=== PATIENT | male | born 1975 ===

== ENCOUNTER 2021-08-16 14:57 | Outpatient (REF) | payer MEDICAID, SELFPAY ==
[2021-08-16 15:32] LABS: MANUAL DIFF FLAG NO
[2021-08-16 15:36] LABS: Basophils Absolute Auto 0.1 X10*3/uL (0.0-0.2); Basophils Percent Auto 0.7 % (0-2); Eosinophils Absolute Auto 0.3 X10*3/uL (0.0-0.4); Eosinophils Percent Auto 2.8 % (0-4); Hematocrit 45.1 % (42.0-52.0); Hemoglobin 15.6 g/dl (14.0-18.0); Lymphocytes Absolute Auto 2.9 X10*3/uL (1.2-4.9); Lymphocytes Percent Auto 30.2 % (20-40); Mean Corpuscular HGB Conc 34.6 g/dl (31.0-36.0); Mean Corpuscular Volume 89.7 fL (80.0-98.0); Mean Platelet Volume 9.8 fL (9.4-12.4); Monocytes Absolute Auto 0.6 X10*3/uL (0.1-1.2); Monocytes Percent Auto 6.5 % (2-11); Neutrophils Absolute Auto 5.7 x10*3/uL (2.0-8.3); Neutrophils Percent Auto 58.8 % (45-73); Platelet Count 259 X10*3/uL (160-400); Red Blood Count 5.03 X10*6/uL (4.60-5.80); Red Cell Distribution Width 12.6 % (11.0-16.0); White Blood Count 9.7 X10*3/uL (4.8-10.8)
[2021-08-16 16:01] LABS: Alanine Aminotransferase 47 U/L (0-40); Albumin Level 4.4 g/dL (3.5-5.0); Alkaline Phosphatase 74 U/L (39-117); Anion Gap 11 (12-20); Aspartate Amino Transferase 28 U/L (5-37); Bilirubin Total 0.4 mg/dL (0.0-1.0); Blood Urea Nitrogen 10 mg/dL (9-16); Calcium 9.5 mg/dL (8.4-10.2); Carbon Dioxide 27 mmol/L (22-29); Chloride 102 mmol/L (96-108); Cholesterol 168 mg/dL; Estimated Glomerular Filt Rate > 60; Glucose Random 124 mg/dL (60-115); HDL Cholesterol 28 mg/dL; LDL Cholesterol Calculated 88 mg/dl; Potassium 4.4 mmol/L (3.3-5.1); Sodium 136 mmol/L (135-145); Triglycerides 263 mg/dL
[2021-08-16 17:24] LABS: CT PCR NOT DETECTED (Not Detect.); NG PCR NOT DETECTED (Not Detect.)
[2021-08-17 06:54] LABS: HIV Num 2 0.13 S/CO; HIV Num 3 0.11 S/CO
[2021-08-17 06:58] LABS: HIV AB/AG Nonreactive (Nonreactive)
== END 2021-08-16 14:58 | disposition home or self-care (01) ==
LOC: HO.LAB 14:57
PROVIDERS: PCP Internal Medicine; Visit Provider Internal Medicine
DX: Z00.00 Encounter for general adult medical examination without abnormal findings (principal); Z11.4 Encounter for screening for human immunodeficiency virus [HIV]; Z11.3 Encounter for screening for infections with a predominantly sexual mode of transmission; M25.512 Pain in left shoulder; E78.2 Mixed hyperlipidemia; F17.201 Nicotine dependence, unspecified, in remission
CPT/HCPCS: 80053; 80061; 85025; 87389; 87491; 87591

== ENCOUNTER 2021-10-24 15:52 | Outpatient (REF) | payer MEDICAID, SELFPAY ==
[2021-10-24 17:34] LABS: Iron 106 mcg/dL (45-160); Percent Iron Saturation 28 % (15-50); Total Iron Binding Capacity 381 mcg/dL (228-428); Unsaturated Iron Binding 275 ug/dL
[2021-10-24 17:54] LABS: Ferritin 311 ng/mL (20-250)
[2021-10-25 04:21] LABS: HBS Num1 10.32 mIU/mL (0-7.99); HBc Num1 0.08 S/CO (0.00-0.79); HBsAGNum1 0.28 S/CO (0.00-0.99); Hepatitis A Antibody IgM 0.19 Index (0-0.79); Hepatitis B Core Antibody Nonreactive (Nonreactive); Hepatitis B Surface Antigen Negative (Negative); ~HepC Num1 0.09 S/CO (0.00-0.79); ~Hepatitis A Antibody IgM Nonreactive (Nonreactive); ~Hepatitis C Antibody Nonreactive (Nonreactive)
[2021-10-25 05:15] LABS: HBS Num2 10.04 mIU/mL (0-7.99); HBS Num3 9.94 mIU/mL (0-7.99); ~Hepatitis B Surface Antibody GRAYZONE (Nonreactive)
[2021-10-26 14:17] LABS: Ceruloplasmin 31 mg/dL (18-36); Transferrin 286 mg/dL (188-341)
[2021-10-26 19:47] LABS: Anti Nuclear Antibody Screen NEGATIVE (NEGATIVE)
== END 2021-10-24 15:53 | disposition home or self-care (01) ==
LOC: HO.LAB 15:52
PROVIDERS: PCP Internal Medicine; Visit Provider Internal Medicine
DX: E78.2 Mixed hyperlipidemia (principal); K21.9 Gastro-esophageal reflux disease without esophagitis; R11.0 Nausea; R74.01 Elevation of levels of liver transaminase levels; F17.201 Nicotine dependence, unspecified, in remission
CPT/HCPCS: 36415; 82390; 82728; 83540; 84466; 86038; 86039; 86704; 86706; 86709; 86803; 87340

== ENCOUNTER 2022-02-28 14:39 | Outpatient (REF) | payer MEDICAID, SELFPAY ==
--- NOTE | ~2022-02-28 | US_ITS ---
EXAMINATION: US ABDOMEN COMPLETE CLINICAL INFORMATION: Elevated LFTs. COMPARISON: None TECHNIQUE: Real-time imaging of the abdominal viscera. FINDINGS: PANCREAS: Normal. ABDOMINAL AORTA: The proximal, mid, and distal segments are normal in caliber. INFERIOR VENA CAVA: Visualized portions are normal. LIVER: Diffusely increased hepatic echogenicity and sound attenuation consistent with diffuse hepatic steatosis. No focal liver lesion seen. No intrahepatic biliary ductal dilatation. Smooth hepatic contour. GALLBLADDER: Surgically absent. COMMON BILE DUCT: Normal in caliber measuring 0.3 cm in diameter. RIGHT KIDNEY: Normal. No hydronephrosis. No renal calculi or focal parenchymal lesions. The kidney measures 11.1 cm in maximum dimension. LEFT KIDNEY: Normal. No hydronephrosis. No renal calculi or focal parenchymal lesions. The kidney measures 10.9 cm in maximum dimension. SPLEEN: Normal. The spleen measures 11.3 cm in maximum dimension. FREE FLUID: None. US/US abdomen complete IMPRESSION: Sonographic appearance consistent with diffuse hepatic steatosis.
== END 2022-02-28 14:40 | disposition home or self-care (01) ==
LOC: HO.HMGCX 14:39
PROVIDERS: Visit Provider Internal Medicine
DX: R94.5 Abnormal results of liver function studies (principal)
CPT/HCPCS: 76700

== ENCOUNTER 2023-03-26 12:07 | Outpatient (REF) | payer MEDICAID, SELFPAY ==
[2023-03-26 12:46] LABS: MANUAL DIFF FLAG NO
[2023-03-26 12:50] LABS: Basophils Absolute Auto 0.1 X10*3/uL (0.0-0.2); Basophils Percent Auto 0.6 % (0-2); Eosinophils Absolute Auto 0.3 X10*3/uL (0.0-0.4); Eosinophils Percent Auto 3.6 % (0-4); Hematocrit 46.2 % (42.0-52.0); Imm Gran Abs Auto 0.04 X10*3/uL (0.00-0.03); Imm Gran Pct Auto 0.4 % (0.0-0.4); Lymphocytes Absolute Auto 2.8 X10*3/uL (1.2-4.9); Lymphocytes Percent Auto 29.4 % (20-40); Mean Corpuscular HGB Conc 34.6 g/dl (31.0-36.0); Mean Corpuscular Hemoglobin 30.8 pg (27.0-33.0); Mean Platelet Volume 10.2 fL (9.4-12.4); Monocytes Absolute Auto 0.6 X10*3/uL (0.1-1.2); Monocytes Percent Auto 6.6 % (2-11); Neutrophils Absolute Auto 5.6 x10*3/uL (2.0-8.3); Neutrophils Percent Auto 59.4 % (45-73); Platelet Count 271 X10*3/uL (160-400); Red Blood Count 5.19 X10*6/uL (4.60-5.80); Red Cell Distribution Width 11.9 % (11.0-16.0); White Blood Count 9.5 X10*3/uL (4.8-10.8)
[2023-03-26 12:56] LABS: Prothrombin Time 12.1 SEC (11.1-13.3)
[2023-03-26 12:58] LABS: Estimated Average Glucose 105 mg/dL; Hemoglobin A1c % 5.3 % (<6.0)
[2023-03-26 13:23] LABS: Alanine Aminotransferase 51 U/L (0-40); Albumin Level 4.2 g/dL (3.5-5.0); Alkaline Phosphatase 74 U/L (39-117); Aspartate Amino Transferase 34 U/L (5-37); Bilirubin Direct 0.2 mg/dL (0.0-0.5); Bilirubin Total 0.4 mg/dL (0.0-1.0); Iron 90 mcg/dL (45-160); Percent Iron Saturation 27 % (15-50); Total Iron Binding Capacity 335 mcg/dL (228-428); Total Protein 8.1 g/dL (6.5-8.0); Unsaturated Iron Binding 245 ug/dL
[2023-03-26 13:39] LABS: Ferritin 257 ng/mL (20-250)
[2023-03-27 17:39] LABS: Alpha 1 Anti-trypsin 149 mg/dL (83-199)
[2023-03-31 11:59] LABS: Smooth Muscle Antibody 32 U (<20)
[2023-04-02 14:18] LABS: FIB-ALT 25 U/L (9-46); FIB-Alpha-2-Macroglobulin 230 mg/dL (106-279); FIB-Apolipoprotein A1 121 mg/dL (94-176); FIB-GGT 38 U/L (3-95); FIB-Haptoglobin 230 mg/dL (43-212); FIB-Total Bilirubin 0.4 mg/dL (0.2-1.2); Liver Fibrosis Score 0.24; Liver Fibrosis Stage F0-F1; Nec Inflam Act Grade A0
[2023-04-02 16:23] LABS: Mitochondrial Antibodies NEGATIVE (NEGATIVE)
== END 2023-03-26 12:08 | disposition home or self-care (01) ==
LOC: HO.LAB 12:07
PROVIDERS: PCP Internal Medicine; Visit Provider Internal Medicine
DX: R74.8 Abnormal levels of other serum enzymes (principal); K76.0 Fatty (change of) liver, not elsewhere classified
CPT/HCPCS: 36415; 80076; 81596; 82103; 82728; 83036; 83540; 85025; 85610; 86015; 86381

== ENCOUNTER 2023-04-03 10:23 | Day surgery (SDC) | payer MEDICAID, SELFPAY ==
[2023-04-01 11:58] VITALS: BMI 36.8
--- NOTE | 2023-04-02 10:05 | HO.ANESPROP2 ---
Documented by User: Yamel Alvarez NP 04/02/23 10:06 HPI - Anesthesia Eval Consult details Narrative: 47yo M for Colonoscopy [facility] Past Medical History Medical History HTN (hypertension) Fatty liver Anxiety OCD (obsessive compulsive disorder) Surgical History Surgical History Hx of wisdom tooth extraction Hx of cholecystectomy (~2008) Social History Social History Patient Tobacco Use Status: Former Tobacco user Quit Date: >4 yrs ago Use of substances other than those prescribed or required for medical reasons: No Are you DNR?: No Advance Directives: No Advance Directives Information Provided: Yes Meds Allergies Allergy/AdvReac Type Severity Reaction Status Date / Time No Known Allergies Allergy Verified 04/03/23 10:33 Home Medications Medication Instructions Recorded Confirmed Last Taken Type aripiprazole 10 mg tablet (Abilify) 10 mg PO DAILY 04/01/23 04/03/23 Unknown History lorazepam 1 mg tablet (Ativan) 1 mg PO BEDTIME PRN Anxiety 04/01/23 04/03/23 Unknown History losartan 50 mg tablet 50 mg PO DAILY 04/01/23 04/03/23 Unknown History sertraline 100 mg tablet (Zoloft) 100 mg PO DAILY 04/01/23 04/03/23 Unknown History Exam Height,Weight and Vital Signs: Height 5 ft 8 in Weight 109.769 kg Assessment and Plan Assessment Anesthesia Assessment: Chart Reviewed Documented by User: Danelle Barker MD 04/03/23 12:28 [facility] Active Problems Active Problems: Snores but never tested for JESSICA Increased BMI HTN Past Medical History Medical History HTN (hypertension) Fatty liver Anxiety OCD (obsessive compulsive disorder) Family History Family history of problems with anesthesia: No Surgical History Surgical History Hx of wisdom tooth extraction Hx of cholecystectomy (~2008) History of Problems with Anesthesia: No Social History Social History Patient Tobacco Use Status: Former Tobacco user Quit Date: >4 yrs ago Use of substances other than those prescribed or required for medical reasons: No Are you DNR?: No Advance Directives: No Advance Directives Information Provided: Yes Meds Allergies Allergy/AdvReac Type Severity Reaction Status Date / Time No Known Allergies Allergy Verified 04/03/23 10:33 Home Medications Medication Instructions Recorded Confirmed Last Taken Type aripiprazole 10 mg tablet (Abilify) 10 mg PO DAILY 04/01/23 04/03/23 Unknown History lorazepam 1 mg tablet (Ativan) 1 mg PO BEDTIME PRN Anxiety 04/01/23 04/03/23 Unknown History losartan 50 mg tablet 50 mg PO DAILY 04/01/23 04/03/23 Unknown History sertraline 100 mg tablet (Zoloft) 100 mg PO DAILY 04/01/23 04/03/23 Unknown History Exam Height,Weight and Vital Signs: Height 5 ft 8 in Weight 109.769 kg Vital Signs Temp Pulse Resp BP Pulse Ox O2 Del Method 04/03/23 11:06 97.6 F 78 15 124/76 97 Room Air Airway Mallampati Class: III TM Dist: >3cm Neck ROM: Full Loose/Missing/Broken Teeth: Yes (Some missing. Denies broken or loose teeth) Heart: RRR Lungs: CTAB Assessment and Plan Assessment Anesthesia Assessment: Anesthesia Plan Discussed Final Anesthetic Review Family History of Problems with Anesthesia: No History of Problems with Anesthesia: No NPO: Yes ASA Class: III Final Preanesthetic Review: No Changes in Pt Med Stat, Meds/Allgs Chart Reviewed, Consent Obtained/Reviewed and Anes Risks/Benef Reviewed Patient Risk: Intermediate Procedure Risk: Low Assessment/Block/Sedation in SS: Assess/Block/Sedation-SS Anesthetic Plan Anesthetic Plan: TIVA Disposition: Standard PACU
--- OUTSIDE RECORDS SUMMARY | 2023-04-03 10:26 | XMS_ITS | Patient Health Record ---
Author Name Unknown Organization [facility] Address [address] [place] [address] Care Team Providers Care Director Case Management Name Role Phone Maribell Gonzalez Primary Care Provider UnavailYahir Lopez Unavailable [phone] ALLERGIES No Known Allergies RESULTS Component Value Reference Range Notes Alpha 1 Anti-trypsin (Not ye t reviewed by provider) Interpretation: Performing Lab:[facility], [address] [place] [phone] Notes/Report: Alpha 1 Anti-trypsin 149 83-199 mg/dL THIS TEST WAS PERFORMED AT: [facility] [address] [place] [phone] JOE KING MD Mitochondrial Antibody (Not yet reviewed by provider) Interpretation: Performing Lab:[facility], [address] [place] [phone] Notes/Report: Mitochondrial Antibodies NEGATIVE NEGATIVE THIS TEST WAS PERFORMED AT: [facility] [address] [place] [phone] JOE KING MD Mitochondrial Ab Titer TNP Smooth Muscle Antibody (Not yet reviewed by provider) Interpretation: Performing Lab:[facility], [address] [place] [phone] Notes/Report: Smooth Muscle Antibody 32 <20 U Reference Range: <20 U: Negative >or=20 U: Positive Antibodies recognizing actin are the main component of smooth muscle antibodies associated with auto- immune liver disease. Actin antibodies are found in approximately 75% of patients with autoimmune hepatitis (AIH) type 1, approximately 65% of patients with autoimmune cholangitis, approximately 30% of patients with primary biliary cirrhosis and approximately 2% of healthy controls. High values are closely correlated with AIH type 1. THIS TEST WAS PERFORMED AT: [facility] [address] [place] [address] TELMA RICCI MD,PHD Complete Blood Count Auto Di ff Reviewed date:03/27/2023 06:10:16 PM Interpretation: Performing Lab:[facility], [address] [place] [phone] Notes/Report: White Blood Count 9.5 4.8-10.8 X10*3/uL Red Blood Count 5.19 4.60-5.80 X10*6/uL Hemoglobin 16.0 14.0-18.0 g/dl Hematocrit 46.2 42.0-52.0 % Mean Corpuscular Volume 89.0 80.0-98.0 fL Mean Corpuscular Hemoglobin 30.8 27.0-33.0 pg Mean Corpuscular HGB Conc 34.6 31.0-36.0 g/dl Red Cell Distribution Width 11.9 11.0-16.0 % Platelet Count 271 160-400 X10*3/uL Mean Platelet Volume 10.2 9.4-12.4 fL Neutrophils Percent Auto 59.4 45-73 % Imm Gran Pct Auto 0.4 0.0-0.4 % Lymphocytes Percent Auto 29.4 20-40 % Monocytes Percent Auto 6.6 2-11 % Eosinophils Percent Auto 3.6 0-4 % Basophils Percent Auto 0.6 0-2 % NRBC Pct Auto 0.0 0.0-0.2 /100WBC Neutrophils Absolute Auto 5.6 2.0-8.3 x10*3/u L Imm Gran Abs Auto 0.04 0.00-0.03 X10*3/uL Lymphocytes Absolute Auto 2.8 1.2-4.9 X10*3/u L Monocytes Absolute Auto 0.6 0.1-1.2 X10*3/uL Eosinophils Absolute Auto 0.3 0.0-0.4 X10*3/u L Basophils Absolute Auto 0.1 0.0-0.2 X10*3/uL NRBC Abs Auto 0.000 0.0-0.012 X10*3/uL Prothrombin Time INR Reviewed date:03/27/2023 06:09:56 PM Interpretation: Performing Lab:[facility], [address] [place] [phone] Notes/Report: Prothrombin Time 12.1 11.1-13.3 SEC INTERNATIONAL NORM RATIO 1.0 0.9-1.1 INTERNATIONAL NORMALIZED RATIO (INR) REFERENCE RANGES Reference Range For patients not on anticoagulant therapy: 0.9 - 1.1 INR ranges for oral anticoagulant therapy: For prevention and treatment of venous thrombosis and pulmonary embolism: 2.0 - 3.0 For acute myocardial infarction with aspirin therapy: 2.0 - 3.0 For acute myocardial infarction without aspirin therapy: 3.0 - 4.0 For patients with mechanical prosthetic heart valves: 2.5 - 3.5 Liver Panel Reviewed date:03/31/2023 01:45:38 PM Interpretation: Performing Lab:[facility], [address] [place] [phone] Notes/Report: Bilirubin Total 0.4 0.0-1.0 mg/dL Bilirubin Direct 0.2 0.0-0.5 mg/dL Aspartate Amino Transferase 34 5-37 U/L Alanine Aminotransferase 51 0-40 U/L Total Protein 8.1 6.5-8.0 g/dL Albumin Level 4.2 3.5-5.0 g/dL Alkaline Phosphatase 74 39-117 U/L IRON PROFILE Reviewed date:03/27/2023 06:10:26 PM Interpretation: Performing Lab:[facility], [address] [place] [phone] Notes/Report: Iron 90 45-160 mcg/dL Total Iron Binding Capacity 335 228-428 mcg/d L Percent Iron Saturation 27 15-50 % Unsaturated Iron Binding 245 Ferritin Reviewed date:03/27/2023 06:09:44 PM Interpretation: Performing Lab:[facility], [address] [place] [phone] Notes/Report: Ferritin 257 20-250 ng/mL Liver Fibrosis Pnl Reviewed date:04/02/2023 04:26:05 PM Interpretation: Performing Lab:[facility], [address] [place] [phone] Notes/Report: Liver Fibrosis Score 0.24 Liver Fibrosis Stage F0-F1 Liver Fibrosis Interpretation SEE NOTE no fibrosis Fibro Test Score (f) Metavir Score f>=0 and f<=0.21 : F0 (no fibrosis) f>0.21 and f<=0.27 : F0-F1 (no fibrosis) f>0.27 and f<=0.31 : F1 (minimal fibrosis) f>0.31 and f<=0.48 : F1-F2 (minimal fibrosis) f>0.48 and f<=0.58 : F2 (moderate fibrosis) f>0.58 and f<=0.72 : F3 (advanced fibrosis) f>0.72 and f<=0.74 : F3-F4 (advanced fibrosis) f>0.74 and f<=1.00 : F4 (severe fibrosis) Nec Inflam Act Score 0.10 Nec Inflam Act Grade A0 Nec Inflam Act Interpretation SEE NOTE no activity ActiTest Score (a) Metavir Score a>=0 and a<=0.17 : A0 (no activity) a>0.17 and a<=0.29 : A0-A1 (no activity) a>0.29 and a<=0.36 : A1 (minimal activity) a>0.36 and a<=0.52 : A1-A2 (minimal activity) a>0.52 and a<=0.60 : A2 (significant activity) a>0.60 and a<=0.62 : A2-A3 (significant activity) a>0.62 and a<=1.00 : A3 (severe activity) MWL-Kvfby-7-Macroglobulin 230 106-279 mg/dL FIB-Haptoglobin 230 43-212 mg/dL FIB-Apolipoprotein A1 121 94-176 mg/dL FIB-Total Bilirubin 0.4 0.2-1.2 mg/dL FIB-GGT 38 3-95 U/L FIB-ALT 25 9-46 U/L Reference ID [id number] Footnote SEE NOTE The reliability of results is dependent on compliance with the preanalytical and analytical conditions recommended by [employer]. The tests have to be deferred for: acute hemolysis, acute hepatitis, acute inflammation, extra hepatic cholestasis. The advice of a specialist should be sought for interpretation in chronic hemolysis and Gilbert's syndrome. The test interpretation is not validated in liver transplant patients. Isolated extreme values of one of the components should lead to caution in interpreting the results. In case of discordance between a biopsy result and a test, it is recommended to seek the advice of a specialist. The causes of these discordances could be due to a flaw of the test or to a flaw in the biopsy: i.e. a liver biopsy has a 33% variability rate for one fibrosis stage. FibroTest is interpretable for chronic hepatitis B and C, alcoholic and non alcoholic steatosis. ActiTest is interpretable for chronic hepatitis B and C. The performance characteristics have been determined by [facility]. It has not been cleared or approved by the U.S. Food and Drug Administration. Performance characteristics refer to the analytical performance of the test. [employer], the associated logo, [employer] and all associated [employer] sal[employer]o are the registered trademarks of [employer]. All third libertarian salcedo - (R) and (TM) - are the property of their respective owners. (C) 7583-1112 [employer]. All rights reserved. THIS TEST WAS PERFORMED AT: [facility] [address] [place] [address] ESTEFANI ARMAS MD,PHD,MINOR Hemoglobin A1c Reviewed date:03/27/2023 06:10:47 PM Interpretation: Performing Lab:[facility], [address] [place] [phone] Notes/Report: Hemoglobin A1c % 5.3 <6.0 % Hemoglobin A1C Reference Range Adults: 4.8 - 6.0 % Non diabetic: < 6.0 % Goal: < 7.0 % Additional Action Suggested: > 8.0 % Note: Hemoglobin A1c results are invalid for patients with abnormal amounts of HbF. Blood transfusions may impact the HbA1c concentration in the patient sample. Estimated Average Glucose 105 eAG = Estimated average glucose which is %A1C expressed as average glucose, using the formula of the A5V-Khcjmfh Average Glucose study (ADAG), Diabetes Care, Vol.31,#8, Sep. 2007 REASON FOR REFERRAL Referring Provider First Name Maribell Referring Provider Last Name Prema Referring Provider Speciality Internal M edicine Referred Organization [facility] Referred Provider Yahir Martin Referred Address [address] [place] [address],[place] [address],[place], [place],[address], Referred Provider Specialty Gastroentero logy General Notes Vivian Chin 023 03:45:23 PM EST > CALLED DR GONZALEZ'S OFFICE TO REQUEST AN [facility] FOR VISIT WITH DR MARTIN ON [phone] Referral Priority Routine MEDICATIONS Medication SIG (Take, Route, Frequency, Duration) Notes Start Date End Date Status Dulcolax (colon prep) 5 MG take at 3:00 p.m and 7:00p.m. Orally two tablets twice a day for one day for 1 day 03/10/2023 Active Ativan 1 MG 1 tablet at bedtime as needed Orally Once a day Active MiraLax (colon prep) 17 GM/SCOOP 1 238Gm bottle mixed with Gatorade or Crystal Light Orally begin at 5:00 p.m. the day before the procedure for 1 day 03/10/2023 Active Losartan Potassium 50 MG 1 tablet Orally Once a day for 30 day(s) 03/06/2023 Active Abilify 10 MG 1 tablet Orally Once a day for 30 day(s) 03/06/2023 Active Zoloft 100 MG 1 tablet Orally Once a day for 30 day(s) twice a day 03/06/2023 Active IMMUNIZATIONS Vaccine Route Administration Date Status Comme nts Influenza Unknown 03/06/2023 Refused SOCIAL HISTORY Tobacco Use: Social History Observation Description Date Details (start date - stop date) Former Smoker NA - NA Sex Assigned At : Social History Observation Description Sex Assigned At Unknown Tobacco Use/Smoking Question Answer Notes Patient is a former smoker Alcohol Screen Question Answer Notes Did you have a drink containing alcohol in the p ast year? No Points 0 Interpretation Negative PROBLEMS Problem Type ICD Code Onset Dates Problem Status W/U Status Risk SNOMED Code Notes Problem Liver enzyme elevation (R74.8) Active confirmed 791635275 Problem Fatty liver (K76.0) Active confirmed 832930526 Problem Colon cancer screening (Z12.11) Active confirmed 041641481 Encounters Encounter Location Date Provider Diagnosis [facility] [address] [place], [place] [id number] 04/03/[address] [facility] [address] [place] [phone] 06/05/2022 Yahri Martin [facility] [address] [place] [phone] 03/06/2023 Yahir Martin Liver enzyme elevation R74.8 ; Fatty liver K76.0 and Colon cancer screening Z12.11 [facility] [address] [place] [address] 06/05/[address] [facility] [address] [place] [address] 03/06/[address] [facility] [address] [place] [address] 03/07/2023 Yahir Martin ASSESSMENTS Encounter Date Diagnosis Assessment Notes Treatment Notes Treatment Clinical Notes 03/06/2023 Fatty liver (ICD-10 - K76.0) Try to lose weight and eat a healthy diet 03/06/2023 Liver enzyme elevation (ICD-10 - R74.8) 03/06/2023 Colon cancer screening (ICD-10 - Z12.11) PLAN OF TREATMENT Pending Test Test Name Order Date LIVER PROFILE 03/06/2023 IRON + IBC (FE) 03/06/2023 CBC w DIFF 03/06/2023 Prothrombin Time INR 03/06/2023 Ferritin 03/06/2023 Alpha 1 Anti-trypsin 03/06/2023 Alpha 1 Anti-trypsin 03/26/2023 Liver Fibrosis Pnl 03/06/2023 Mitochondrial Antibody 03/26/2023 Mitochondrial Antibody 03/06/2023 Smooth Muscle Antibody 03/26/2023 Smooth Muscle Antibody 03/06/2023 Hemoglobin A1c 03/06/2023 Future Test Test Name Order Date COLONOSCOPY 03/06/2023 Next Appt Details Provider Name:Yahir Martin , 04/03/2023 11:30:00 AM, [address] [place] [address] , [place], [place], [phone], Insurance Providers Payer Name Payer Address Payer Phone Subscriber Number Group Number Insured Name Patient Relationship to Insured Coverage Start Date Coverage End Date MEDICAID OF [employer] [address] [place] [phone] [id number] PAT VELASCO Self - patient is the insured MEDICAL (GENERAL) HISTORY Medical History History ICD Code OCD/Anxiety--helped by his meds HTN Fatty liver Denies AK,DM,CVA,Lung disease,renal dise ase Surgical History Surgery Date(Month/Year) CCY 15 years ago
[2023-04-03 10:36] VITALS: BMI 35.6
[2023-04-03 11:06] VITALS: BP 124/76; PULSE 78; RESP 15; TEMP 36.4; O2SAT 97
[2023-04-03] MEDS: Lactated Ringers 1,000 ML 100 ML IVCONT (11:07)
--- NOTE | 2023-04-03 12:45 | PM.OP ---
Brief Operative Note Date of Service: 04/03/23 Pre-op diagnosis: Screening Post-op diagnosis: other (Internal hemorrhoids) Procedure: Colonoscopy to the cecum and TI Surgeon: Yahir Christian MD Anesthesia: MAC Was an Sweet Dough Mixer used for this Procedure?: No Estimated blood loss (mL): 0 Pathology: none sent Condition: stable Disposition: PACU
[2023-04-03 12:47] VITALS: BP 104/70; PULSE 88; RESP 18; TEMP 36.3; O2SAT 96
[2023-04-03 13:02] VITALS: BP 116/65; PULSE 73; RESP 14; TEMP 36.4; O2SAT 98
[2023-04-03 13:15] VITALS: BP 111/63; PULSE 70; RESP 18; TEMP 36.1; O2SAT 99
--- NOTE | 2023-04-03 13:18 | OP_ITS ---
DATE OF SERVICE: 04/03/2023 SURGEON: Yaihr Christian MD INDICATIONS: The patient presents for evaluation of colorectal cancer screening. Full consent has been obtained from him for this, including risks of bleeding and perforation. PREOPERATIVE DIAGNOSIS: Colorectal cancer screening. POSTOPERATIVE DIAGNOSIS: PROCEDURE PERFORMED: Colonoscopy to the cecum and terminal ileum. ESTIMATED BLOOD LOSS: COMPLICATIONS: ANESTHESIA: Monitored anesthesia care. ASSISTANTS: SPECIMENS: POSTOPERATIVE DIAGNOSES: Colorectal cancer screening, internal hemorrhoids. DESCRIPTION OF PROCEDURE: The patient was placed in the left lateral decubitus position. The digital rectal exam revealed no abnormalities. The Olympus video pediatric colonoscope was entered into the rectum and advanced easily to the cecum. Once in the cecum, I did identify normal-appearing cecal pouch with appendiceal orifice and a normal-appearing ileocecal valve. The terminal ileum was cannulated and appeared normal. The scope was withdrawn back in the colon. The entire cecum and ileocecal valve appeared normal. The scope was slowly withdrawn assessing all mucosal surfaces carefully. Preparation was excellent. I did not visualize any sign of polyps, colitis, nor angiodysplasia. In the rectum, scope was retroflexed visualizing small internal hemorrhoids, but no other pathology. The rectal mucosa appeared normal. The scope was straightened and withdrawn the patient. He tolerated the procedure well and was returned to the recovery area in stable condition. IMPRESSION: Internal hemorrhoids. PLAN: Given today's negative colonoscopy and no family history of colon cancer, I would recommend a followup coloscopy in 10 years. I did advise him to see me in 1 year for followup in regard to the fatty liver. The workup for that has otherwise been negative in regard to autoimmune studies, viral serologies, and iron studies. His most recent liver profile was normal other than ALT of just minimal elevation of 51. His alpha-1 antitrypsin level was normal as well. MD ANTONINA Chavarria/ALEXIS / [id number]
== END 2023-04-03 13:40 | disposition home or self-care (01) ==
PROVIDERS: PCP Internal Medicine; Visit Provider Internal Medicine
PROC: 0DJD8ZZ Inspection of Lower Intestinal Tract, Via Natural or Artificial Opening Endoscopic (ICD-10-PCS; CPT 45378; principal; 2023-04-03 11:30)
DX: Z12.11 Encounter for screening for malignant neoplasm of colon (principal); K64.8 Other hemorrhoids; I10 Essential (primary) hypertension; Z79.899 Other long term (current) drug therapy
CPT/HCPCS: 45378; J2704

== ENCOUNTER 2023-06-24 05:45 | Emergency (ER) | payer MEDICAID, SELFPAY ==
[2023-06-24 06:11] VITALS: BP 143/85; PULSE 72; RESP 18; O2SAT 98; BMI 37.6
[2023-06-24 06:23] VITALS: BP 143/85; PULSE 72; RESP 18; O2SAT 98
--- OUTSIDE RECORDS SUMMARY | 2023-06-24 06:24 | XMS_ITS | Patient Health Record ---
Author Organization [facility] Address [address] [place] [address] Care Team Providers Care Senior Operations Analyst Name Role Phone Maribell Lloyd Primary Care Provider UnavailYahri Lopez Unavailable [phone] ALLERGIES No Known Allergies RESULTS Component Value Reference Range Notes Complete Blood Count Auto Di ff Reviewed date:03/27/2023 06:10:16 PM Interpretation: Performing Lab:[facility], [address] [place] [phone] Notes/Report: White Blood Count 9.5 4.8-10.8 X10*3/uL [...] INR Reviewed date:03/27/2023 06:09:56 PM Interpretation: Performing Lab:[address] [phone] Notes/Report: Prothrombin Time 12.1 11.1-13.3 SEC INTERNATIONAL [...] Panel Reviewed date:03/31/2023 01:45:38 PM Interpretation: Performing Lab:[address] [phone] Notes/Report: Bilirubin Total 0.4 0.0-1.0 mg/dL Bilirubin Direct 0.2 0.0-0.5 mg/dL Aspartate Amino Transferase 34 5-37 U/L Alanine Aminotransferase 51 0-40 U/L Total Protein 8.1 6.5-8.0 g/dL Albumin Level 4.2 3.5-5.0 g/dL Alkaline Phosphatase 74 39-117 U/L IRON PROFILE Reviewed date:03/27/2023 06:10:26 PM Interpretation: Performing Lab:[address] [phone] Notes/Report: Iron 90 45-160 mcg/dL Total Iron Binding Capacity 335 228-428 mcg/d L Percent Iron Saturation 27 15-50 % Unsaturated Iron Binding 245 Ferritin Reviewed date:03/27/2023 06:09:44 PM Interpretation: Performing Lab:[facility], [address] [place] [phone] Notes/Report: Ferritin 257 20-250 ng/mL Alpha 1 Anti-trypsin Reviewed date:04/03/2023 06:29:36 PM Interpretation: Performing Lab:[facility], [address] [place] [phone] Notes/Report: Alpha 1 Anti-trypsin 149 83-199 mg/dL THIS TEST WAS PERFORMED AT: [facility] [address] [place] [phone] JOE KING MD Liver Fibrosis Pnl Reviewed date:04/02/2023 04:26:05 PM Interpretation: Performing Lab:[facility], [address] [place] [phone] Notes/Report: Liver Fibrosis Score 0.24 Liver Fibrosis [...] a>0.62 and a<=1.00 : A3 (severe activity) FEN-Lvwzy-4-Macroglobulin 230 106-279 mg/dL FIB-Haptoglobin 230 43-212 mg/dL FIB-Apolipoprotein A1 121 94-176 mg/dL FIB-Total Bilirubin 0.4 0.2-1.2 mg/dL FIB-GGT 38 3-95 U/L FIB-ALT 25 9-46 U/L Reference ID [id number] Footnote SEE NOTE The reliability of results is dependent on compliance with the preanalytical and analytical conditions recommended by milogredictive. The tests have to be deferred for: [...] The performance characteristics have been determined by [facility]. It has not been cleared or approved by the U.S. Food and Drug Administration. Performance characteristics refer to the analytical performance of the test. [employer], the associated logo, [employer] and all associated [employer] salcedo are the registered trademarks of [employer]. All third green party salcedo - (R) and (TM) - are the property of their respective owners. (C) [id number] [employer]. All rights reserved. THIS TEST WAS PERFORMED AT: [facility] [address] [place] [address] ESTEFANI ARMAS MD,PHD,MINOR Mitochondrial Antibody Reviewed date:04/03/2023 06:29:42 PM Interpretation: Performing Lab:[facility], [address] [place] [phone] Notes/Report: Mitochondrial Antibodies NEGATIVE NEGATIVE THIS TEST WAS PERFORMED AT: [facility] [address] [address] JOE KING MD Mitochondrial Ab Titer TNP Smooth Muscle Antibody Reviewed date:04/03/2023 06:29:56 PM Interpretation: Performing Lab:[facility], [address] [place] [phone] Notes/Report: Smooth Muscle Antibody 32 <20 U [...] type 1. THIS TEST WAS PERFORMED AT: [facility] [address] TELMA RICCI MD,PHD Hemoglobin A1c Reviewed date:03/27/2023 06:10:47 PM Interpretation: Performing Lab:[facility], [address] [place] [phone] Notes/Report: Hemoglobin A1c % 5.3 <6.0 % [...] average glucose, using the formula of the [id number] Average Glucose study (ADAG), Diabetes Care, Vol.31,#8, 2007 REASON FOR REFERRAL No Information MEDICATIONS Medication SIG (Take, Route, Frequency, Duration) [...] Problem Liver enzyme elevation (R74.8) Active confirmed 864779514 Problem Fatty liver (K76.0) Active confirmed 005639010 Problem Colon cancer screening (Z12.11) Active confirmed 456923720 VITAL SIGNS Temperature 98.2 degrees Fahrenheit 03/06/2023 Blood pressure diastolic 00 mm Hg 03/06/2023 Height 5 ft 8 in in 03/06/2023 Blood pressure systolic 000 mm Hg 03/06/2023 Weight 242 lb 2 oz lbs 03/06/2023 BMI 36.81 kg/m2 03/06/2023 Encounters Encounter Location Date Provider Diagnosis [facility] [address] [place], [place] [id number] 04/03/2023 Yahir Christian Encounter for screening colonoscopy Z12.11 and Other hemorrhoids K64.8 [facility] [address] [place] [address] 03/06/2023 Yahir Christian Liver enzyme elevation R74.8 ; Fatty liver K76.0 and Colon cancer screening Z12.11 [facility] [address] [place] [address] 03/06/2023 Yahir Christian [facility] [address] [place] [address] 03/07/2023 Yahir Christian ASSESSMENTS Encounter Date Diagnosis Assessment Notes Treatment Notes Treatment Clinical Notes 04/03/2023 Encounter for screening colonoscopy (ICD-10 - Z12.11) 04/03/2023 Other hemorrhoids (ICD-10 - K64.8) 03/06/2023 Fatty liver (ICD-10 - K76.0) Try to lose weight and eat a healthy diet 03/06/2023 Liver enzyme elevation (ICD-10 - R74.8) 03/06/2023 Colon cancer screening (ICD-10 - Z12.11) PLAN OF TREATMENT Pending Test Test Name Order Date LIVER PROFILE 03/06/2023 IRON + IBC (FE) 03/06/2023 CBC w DIFF 03/06/2023 Prothrombin Time INR 03/06/2023 Ferritin 03/06/2023 Alpha 1 Anti-trypsin 03/06/2023 Liver Fibrosis Pnl 03/06/2023 Mitochondrial Antibody 03/06/2023 Smooth Muscle Antibody 03/06/2023 Hemoglobin A1c 03/06/2023 Future Test Test Name Order Date COLONOSCOPY 03/06/2023 Insurance Providers Payer Name Payer Address Payer Phone Subscriber Number Group Number Insured Name Patient Relationship to Insured Coverage Start Date Coverage End Date [employer] [address] [place] [phone] [id number] PAT VELASCO Self - patient is the insured MEDICAL (GENERAL) HISTORY Medical History History ICD Code OCD/Anxiety--helped by his meds HTN Fatty liver Denies MT,DM,CVA,Lung disease,renal dise ase Surgical History Surgery Date(Month/Year) CCY 15 years ago
--- NOTE | 2023-06-24 06:45 | ED_ITS ---
HPI - Dental/Oral General Chief complaint: Dental/Oral Stated complaint: tooth pain upper right Time Seen by Provider: 06/24/23 06:41 Source: patient and RN notes reviewed Mode of arrival: ambulatory Limitations: no limitations History of Present Illness HPI Narrative: 47-year-old male with pmhx significant for HTN, anxiety, OCD, and fatty liver presents to the ED today for evaluation right upper tooth pain x2 days. Endorses history of root canal with crown placement in the area of discomfort. Admits that the crown fell off years back while in [place]. Denies any fractured teeth. He has been taking ibuprofen at home with minimal relief. He states that he does have a dentist however has not reached out to them as his pain began over the weekend. He has plans to reach out to them later today. Denies fever, chills, ear pain, neck pain, difficulty swallowing, pain on swallowing, dyspnea, shortness of breath, nausea or vomiting. MD Complaint: tooth pain Teeth map: 2 1. Onset (ago): day(s) (2) Duration: constant Severity: moderate Relieving factors: nothing Exacerbating factors: nothing Context: history of dental caries and poor dental care Treatment prior to arrival: oral analgesic Related Data Home Medications ?Medication ?Instructions ?Recorded ?Confirmed aripiprazole 10 mg tablet (Abilify) 10 mg PO DAILY 04/01/23 04/03/23 lorazepam 1 mg tablet (Ativan) 1 mg PO BEDTIME PRN Anxiety 04/01/23 04/03/23 losartan 50 mg tablet 50 mg PO DAILY 04/01/23 04/03/23 sertraline 100 mg tablet (Zoloft) 100 mg PO DAILY 04/01/23 04/03/23 Previous Rx's ?Medication ?Instructions ?Recorded amoxicillin 875 mg-potassium 1 tab PO Q12H 7 days #14 tabs 06/24/23 clavulanate 125 mg tablet naproxen 500 mg tablet 500 mg PO Q8H PRN pain (scale 06/24/23 score 4-6) #14 tabs tramadol 50 mg tablet 50 mg PO Q8H PRN pain (scale score 06/24/23 7-10) #6 tabs Allergies Allergy/AdvReac Type Severity Reaction Status Date / Time No Known Allergies Allergy Verified 06/24/23 06:12 Review of Systems 2 Review of Systems: Constitutional: No fever, chills, fatigue, night sweats, weight changes ENT/Mouth: No ear pain, hearing loss, nasal congestion, sinus pain, rhinorrhea, sore throat, +dental pain, No odynophagia, No dysphagia Eyes: No eye pain, swelling, redness, vision changes, discharge Cardio: No chest pain, palpitations, DASH, orthopnea, peripheral edema Pulm: No SOB, cough, sputum, wheezing, dyspnea, hemoptysis GI: No nausea, vomiting, hematemesis, abdominal pain, diarrhea, constipation, hematochezia, melena : No irregular bleeding, dysuria, frequency, urgency, hesitancy, hematuria, flank pain, urinary flow changes, urinary incontinence or retention MSK: No back pain, neck pain, joint pain, myalgias Skin: No lesions, rashes Neuro: No weakness, numbness, paresthesias, LOC, dizziness, headache Psych: No anxiety/panic, depression, SI/HI, AH/VH All other systems reviewed and are negative. [facility] Past Medical History Attestation statement: The following information was validated with the patient. Source: old records reviewed and nursing notes reviewed Medical History HTN (hypertension) Fatty liver Anxiety OCD (obsessive compulsive disorder) Surgical History Hx of wisdom tooth extraction Hx of cholecystectomy (~2008) Social History Social History Patient Tobacco Use Status: Former Tobacco user Quit Date: >4 yrs ago Advance Directives: No Advance Directives Information Provided: No Do you have a plan to hurt others: No Plan Physical Exam 2 Vital Signs: Vital Signs: Last Vital Signs Temp 98 F 06/24/23 07:30 Pulse 72 06/24/23 07:30 Resp 17 06/24/23 07:30 BP 145/86 H 06/24/23 07:30 Pulse Ox 97 06/24/23 07:30 O2 Del Method Room Air 06/24/23 07:30 BMI result Body Mass Index 37.6 Vital signs stable, afebrile. Const: General: cooperative, comfortable and no acute distress O rientation/consciousness: patient oriented x3 Limitations: no limitations HEENT: Other: + No facial edema. Tongue and lips wnl + multiple dental caries and poor dentit ion. right upper 5th toothabscent, there is localized swelling to the lingual and buccal gingiva. No pointing. No active bleeding. No discharge. TTP. No palpable fluctuance. + No edema to buccal mucosa + Posterior oropharynx without erythema/ edema. Uvula midline. Controlling secretions and speaking in complete sentences + No submandublar or submental LAD + No cervical LAD + no anterior neck swelling. No trismus. Head: Yes normal to inspection, Yes No palpable skull fracture present, Yes normocephalic and Yes atraumatic Ears: hearing grossly normal bilaterally, external ears normal, TM's normal bilaterally, EAC's normal, mastoids normal and no periauricular adenopathy Eyes: General: appearance normal, both eyes and all related structures C onjunctivae: conjunctivae normal Sclerae: sclerae normal Pupils: Equal, round and reactive pupils present Neck: Neck: Yes normal visual inspection, Yes full ROM and Yes no lymphadenopathy Resp: Effort & Inspection: normal respiratory effort and no stridor A uscultation: clear to auscultation bilaterally Cardio: Rate: regular rate Rhythm: regular rhythm Skin: General skin exam: no rashes or lesions noted Neuro: General: patient oriented x3 and gait normal Cranial nerves: Yes Equal, round and reactive pupils present Course Course Course Narrative: 0715-- Patient noted to have dental infection. There is no evidence of abscess that warrants drainage at this time. There is no anterior neck swelling to suggest Rome's angina. No concern for airway compromise. Will treat patient's pain and patient will be discharged home on Augmentin to ensure there is no worsening infection for follow-up with dentist. Patient advised to follow up with his dentist this week. He verbalizes understanding and states that he will call their office today. Patient has remained stable throughout ED visit today. I discussed worrisome signs and symptoms and when to return to the ED. All questions answered at this time. Patient is agreeable with disposition and stable for discharge. Medications Administered Discontinued Medications Generic Name Dose Route Start Last Admin Trade Name Freq PRN Reason Stop Dose Admin Amoxicillin/Clavulanate Potassium 875 mg 06/24/23 06:55 06/24/23 07:23 Amoxicillin/Potassium Clav 875 Mg Tablet PO 06/24/23 06:56 875 mg ONCE ONE Administration Ketorolac Tromethamine 30 mg 06/24/23 06:55 06/24/23 07:23 Ketorolac Tromethamine 30 Mg/Ml Vial IM 06/24/23 06:56 30 mg ONCE ONE Administration Medical Decision Making Medical Decision Making [facility] Narrative: 47-year-old male with pmhx significant for HTN, anxiety, OCD, and fatty liver presents to the ED today for evaluation right upper tooth pain x2 days. Patient is hypertensive to 143/85, vitals otherwise WNL. He is in no respiratory distress. Nontoxic appearing, lying comfortably on the exam bed. On exam, No facial edema. Tongue and lips wnl. multiple dental caries and poor dentition. right upper 5th toothabscent, there is localized swelling to the lingual and buccal gingiva. No pointing. No active bleeding. No discharge. TTP. No palpable fluctuance. No edema to buccal mucosa. Posterior oropharynx without erythema/edema. Uvula midline. Controlling secretions and speaking in complete sentences. No submandublar or submental LAD. No cervical LAD. no anterior neck swelling. No trismus. No stridor. Lungs are CTA bilaterally. Bilateral EACs and TMs WNL. No mastoid tenderness. Differential includes dental/ periapical abscess/infection.Unlikely mono, herpes, sialadenitis, sialolithiasis, [employer], retropharyngeal abscess, Rome's angina, airway compromise, deep neck infection, osteomyelitis, facial cellulitis/ abscess, lymphoma. Plan for pain control and discharge home with antibiotics and dentist follow up. Differential Diagnosis Differential Diagnoses: The differential diagnosis associated with the presentation includes as above. Admission/Observation Not indicated. Tests considered The following testing was considered but not selected: I considered obtaining a CT of the soft tissues neck however these is no evidence of ludwigs angina or concern for deep tissue infection. Not warranted at this time. Prescription Management I considered prescription management with: Pain Medication and Antibiotic Social Determinants Patient?s care significantly limited by Social Determinants of Health including: Other Social Determinant of Health Discharge Plan Discharge Clinical Impression: Toothache, Dental caries Patient Disposition: Home, Self-Care Instructions: Toothache (ED), Tooth Extraction (DC) Additional Instructions: You were seen in the ED today for tooth pain. You were given one dose of antibiotics in the ED. Augmentin is an antibiotic that has been sent to your pharmacy. Take your second dose in 12 hours. On Augmentin, softer bowel movements are to be expected. Call your provider if you move your bowels more than 4 times a day, your bowel movements are almost all liquid, or you get a rash.? Naproxen is an anti-inflammatory that has been sent to your pharmacy. You may take this as needed for pain/discomfort. Do not take this with other NSAIDs such as Ibuprofen or Ketooalac as this can increase risk of GI bleeding. You may also take Tylenol at home. Tramadol is a pain medication that has been sent to your pharmacy for you to take for breakthrough pain. This is a controlled medication. YOU NEED TO FOLLOW UP WITH YOUR DENTIST. CALL THEM TODAY TO MAKE AN APPOINTMENT THIS WEEK. Please return with new or worsening symptoms such as increased swelling, difficulty swallowing, or fever. In the case of an emergency call 911. Prescriptions: New tramadol 50 mg tablet 50 mg PO Q8H PRN (Reason: pain (scale score 7-10)) Qty: 6 0RF amoxicillin-pot clavulanate 875-125 mg tablet 1 tab PO Q12H 7 Days Qty: 14 0RF naproxen 500 mg tablet 500 mg PO Q8H PRN (Reason: pain (scale score 4-6)) Qty: 14 0RF No Action losartan 50 mg Tablet 50 mg PO DAILY sertraline [Zoloft] 100 mg Tablet 100 mg PO DAILY lorazepam [Ativan] 1 mg Tablet 1 mg PO BEDTIME PRN (Reason: Anxiety) aripiprazole [Abilify] 10 mg Tablet 10 mg PO DAILY Interventions: ED Discharge Assessment Last Done: 06/24/23 07:30 Discharge Date/Time: 06/24/23 07:31 Print Language: Uzbek
[2023-06-24] MEDS: Amoxicillin/Potassium Clav 875 MG TABLET PO (07:23)
[2023-06-24] MEDS: Ketorolac Tromethamine 30 MG/ML VIAL IM (07:23)
[2023-06-24 07:30] VITALS: BP 145/86; PULSE 72; RESP 17; TEMP 36.6; O2SAT 97
== END 2023-06-24 07:31 | disposition home or self-care (01) ==
PROVIDERS: Emergency Provider Emergency Medicine; PCP Internal Medicine
DX: K02.9 Dental caries, unspecified (principal)
CPT/HCPCS: 96372; 99284; J1885

== ENCOUNTER 2023-10-09 10:42 | Outpatient (AMB) | payer MEDICAID, SELFPAY ==
--- NOTE | 2023-10-09 10:45 | MHC.OFFVIS ---
Vital Signs 10/09/23 10:46 Height 5 ft 7 in Weight 230 lb BMI 36.0 BP 146/84 H Blood Pressure Location Rt brachial Position Sitting Intake Visit Reasons: Lipoma of right leg Intake Note: This patient presents for Lipoma of right leg assessment. Pt c/o; reports right leg lipoma, reports redness and swelling left foot. Publishing Systems Analyst Required: No Accompanied by: Other Relationship Allergies No Known Allergies Allergy (Verified 10/09/23 10:52) Medication List - Last Reconciled 10/09/23 by Scooter Muller MD amoxicillin-pot clavulanate 875-125 mg 1 tab PO Q12H 7 days aripiprazole (Abilify) 10 mg PO DAILY lorazepam (Ativan) 1 mg PO BEDTIME PRN losartan 50 mg PO DAILY naproxen 500 mg PO Q8H PRN sertraline (Zoloft) 100 mg PO DAILY tramadol 50 mg PO Q8H PRN HPI HPI Lipoma of right leg: Details: 47-year-old male referred for a skin lesion on the right leg. He has had this for many years. He thinks it is increasing in size and has been starting to bother him. [facility] Medical History (Updated 10/09/23 @ 11:04 by Scooter Muller MD) Swelling of left foot Fibroma Fibroma of lower extremity HTN (hypertension) Fatty liver Anxiety OCD (obsessive compulsive disorder) Surgical History Hx of wisdom tooth extraction Hx of cholecystectomy (~2008) Social History Patient Tobacco Use Status: Former Tobacco user Review of Systems Const Denies chills and Denies fever(s) Card Denies chest pain, Denies dyspnea and Denies dyspnea on exertion Resp Denies cough, Denies dyspnea and Denies dyspnea on exertion GI Denies hematochezia and Denies change in bowel habits Denies hematuria and Denies difficulty urinating Musc Denies back pain and Denies limited range of motion Neuro Denies focal weakness and Denies convulsions Psych Denies depression and Denies mood swings Physical Exam Const General: comfortable and no acute distress Orientation/consciousness: patient oriented x3 Neck Neck: Yes no lymphadenopathy Resp Auscultation: clear to auscultation bilaterally Cardio Rhythm: regular rhythm GI Palpation (GI): Soft to palpation, nontender and no guarding Neuro General: patient oriented x3 Extrem Other: Soft, fleshy well-defined mass, about 1.2 cm in widest dimension on the right lower leg On the left foot medially along the area of the big toe is note of some edema and redness as well Assessment & Plan Assessment & Plan (1) Fibroma of lower extremity: Code(s): D21.20 - Benign neoplasm of connective and other soft tissue of unspecified lower limb, including hip Category: Medical (2) Swelling of left foot: Code(s): M79.89 - Other specified soft tissue disorders Category: Medical Plan: He has this edema and redness of the area of the big toe medially. I am going to order for a KUB to rule out a bony abnormality including a bunion. Plan I explained the technique of excision. I reviewed the risks including but not limited to bleeding, infections, poor healing, as well as the benefits and alternatives. He understands and wants to proceed. Orders: Orders XR foot LT 2V Today M79.89 - Other specified soft tissue disorders Coding Level of Care Code New Pt Level 3 (05947) Diagnoses Fibroma of lower extremity D21.20 Swelling of left foot M79.89
[2023-10-09 10:46] VITALS: BP 146/84; BMI 36.0
== END 2023-10-09 11:07 | disposition home or self-care (01) ==
PROVIDERS: PCP Internal Medicine; Visit Provider Surgery
DX: D21.20 Benign neoplasm of connective and other soft tissue of unspecified lower limb, including hip (principal); M79.89 Other specified soft tissue disorders; D21.9 Benign neoplasm of connective and other soft tissue, unspecified
CPT/HCPCS: 99204

== ENCOUNTER → 2023-10-09 10:42 | Outpatient (BNVA) | payer MEDICAID, SELFPAY | PROVIDERS: PCP Internal Medicine; Visit Provider Surgery | DX: D21.20 Benign neoplasm of connective and other soft tissue of unspecified lower limb, including hip (principal); M79.89 Other specified soft tissue disorders | CPT/HCPCS: 99202 ==

== ENCOUNTER 2023-10-16 18:47 | Emergency (ER) | payer MEDICAID, SELFPAY ==
--- NOTE | ~2023-10-16 | XR_ITS ---
EXAMINATION: XR TOES, LEFT CLINICAL INFORMATION: First toe pain COMPARISON: Foot radiographs 03/04/2019 TECHNIQUE: 3 views of the left toes were obtained. FINDINGS: No acute fracture or dislocation. Moderate osteoarthritis of the first MTP joint progressed from prior with loss of joint space, osteophytes and subchondral cystic change. Soft tissues are unremarkable. XR/XR toe LT min 2V IMPRESSION: Moderate osteoarthritis of the first MTP joint progressed from prior with loss of joint space, osteophytes and subchondral cystic change. Electronically signed by: Radha Tucker MD 10/16/2023 07:19 PM EDT
[2023-10-16 18:51] VITALS: BP 150/81; PULSE 79; RESP 18; TEMP 36.2; O2SAT 99; BMI 41.2
--- NOTE | 2023-10-16 18:52 | ED_ITS ---
HPI - General Adult General Stated complaint: left great toe swollen,reddened Related Data Home Medications ?Medication ?Instructions ?Recorded ?Confirmed aripiprazole 10 mg tablet (Abilify) 10 mg PO DAILY 04/01/23 10/09/23 lorazepam 1 mg tablet (Ativan) 1 mg PO BEDTIME PRN Anxiety 04/01/23 10/09/23 losartan 50 mg tablet 50 mg PO DAILY 04/01/23 10/09/23 sertraline 100 mg tablet (Zoloft) 100 mg PO DAILY 04/01/23 10/09/23 Previous Rx's ?Medication ?Instructions ?Recorded amoxicillin 875 mg-potassium 1 tab PO Q12H 7 days #14 tabs 06/24/23 clavulanate 125 mg tablet naproxen 500 mg tablet 500 mg PO Q8H PRN pain (scale 06/24/23 score 4-6) #14 tabs tramadol 50 mg tablet 50 mg PO Q8H PRN pain (scale score 06/24/23 7-10) #6 tabs Allergies Allergy/AdvReac Type Severity Reaction Status Date / Time No Known Allergies Allergy Verified 10/16/23 18:52 [facility] Past Medical History Medical History (Updated 10/09/23 @ 11:04 by Scooter Muller MD) Swelling of left foot Fibroma Fibroma of lower extremity HTN (hypertension) Fatty liver Anxiety OCD (obsessive compulsive disorder) Surgical History Hx of wisdom tooth extraction Hx of cholecystectomy (~2008) Social History Social History Patient Tobacco Use Status: Former Tobacco user Course Course Course Narrative: RME, this is a rapid medical exam performed by Vasile Rose please refer to primary provider for complete H&P- 47 year old male presents for evaluation of left great toe pain on and off for the last month or so. Denies any specific trauma. Denies any known history of gout but endorses a diet high in red meat/ seafood. Plan for x-ray, labs. He is not a diabetic Discharge Plan Discharge Prescriptions: No Action losartan 50 mg Tablet 50 mg PO DAILY sertraline [Zoloft] 100 mg Tablet 100 mg PO DAILY lorazepam [Ativan] 1 mg Tablet 1 mg PO BEDTIME PRN (Reason: Anxiety) aripiprazole [Abilify] 10 mg Tablet 10 mg PO DAILY tramadol 50 mg tablet 50 mg PO Q8H PRN (Reason: pain (scale score 7-10)) Qty: 6 0RF amoxicillin-pot clavulanate 875-125 mg tablet 1 tab PO Q12H 7 Days Qty: 14 0RF naproxen 500 mg tablet 500 mg PO Q8H PRN (Reason: pain (scale score 4-6)) Qty: 14 0RF Print Language: [place]
[2023-10-16 19:12] LABS: MANUAL DIFF FLAG NO
[2023-10-16 19:18] LABS: Basophils Absolute Auto 0.1 X10*3/uL (0.0-0.2); Basophils Percent Auto 0.7 % (0-2); Eosinophils Absolute Auto 0.4 X10*3/uL (0.0-0.4); Eosinophils Percent Auto 4.4 % (0-4); Hematocrit 41.8 % (42.0-52.0); Hemoglobin 14.4 g/dl (14.0-18.0); Imm Gran Abs Auto 0.04 X10*3/uL (0.00-0.03); Imm Gran Pct Auto 0.5 % (0.0-0.4); Lymphocytes Absolute Auto 2.7 X10*3/uL (1.2-4.9); Lymphocytes Percent Auto 32.7 % (20-40); Mean Corpuscular HGB Conc 34.4 g/dl (31.0-36.0); Mean Corpuscular Hemoglobin 31.2 pg (27.0-33.0); Mean Corpuscular Volume 90.5 fL (80.0-98.0); Mean Platelet Volume 10.1 fL (9.4-12.4); Monocytes Absolute Auto 0.7 X10*3/uL (0.1-1.2); Monocytes Percent Auto 7.8 % (2-11); Neutrophils Absolute Auto 4.5 x10*3/uL (2.0-8.3); Neutrophils Percent Auto 53.9 % (45-73); Platelet Count 255 X10*3/uL (160-400); Red Blood Count 4.62 X10*6/uL (4.60-5.80); Red Cell Distribution Width 12.1 % (11.0-16.0); White Blood Count 8.3 X10*3/uL (4.8-10.8)
[2023-10-16 19:30] LABS: Alanine Aminotransferase 30 U/L (0-40); Alkaline Phosphatase 76 U/L (39-117); Anion Gap 12 (12-20); Aspartate Amino Transferase 25 U/L (5-37); Bilirubin Total 0.3 mg/dL (0.0-1.0); Blood Urea Nitrogen 9 mg/dL (9-16); C Reactive Protein 2.51 mg/dL (< or = 0.50); Carbon Dioxide 28 mmol/L (22-29); Chloride 104 mmol/L (96-108); Creatinine Clr Calc Pharmacy 66.7; Estimated Glomerular Filt Rate 49; Glucose Random 125 mg/dL (60-115); Lipase 32 U/L (8-78); Potassium 3.8 mmol/L (3.3-5.1); Sodium 140 mmol/L (135-145)
[2023-10-16 20:28] LABS: Erythrocyte Sedimentation Rate 38 MM/HR (0-15)
[2023-10-16 23:50] LABS: Uric Acid 10.1 mg/dL (3.4-7.0)
--- NOTE | 2023-10-16 23:52 | ED_ITS ---
HPI - Extremity Injury (Lower) General Chief Complaint: Extremity Injury, Lower Stated Complaint: left great toe swollen,reddened Time Seen by Provider: 10/16/23 22:49 Source: patient Mode of arrival: ambulatory Limitations: no limitations History of Present Illness ED Provider: Dr. Apolonia Baumann HPI Narrative: patient comes to the emergency room complaining of right great toe redness and swelling for approximately 2 months. Patient states that the inflammation comes and goes. However, over the last few days it has been getting very painful even to walk. Patient states that even when he sleeps, the bed sheets irritate the skin on the toe. Patient states that he has had this happened multiple times, always on the same toe. Patient denies fever, had chills yesterday. Patient denies any obvious injury. Patient denies being diagnosed with gout before Related Data Home Medications ?Medication ?Instructions ?Recorded ?Confirmed aripiprazole 10 mg tablet (Abilify) 10 mg PO DAILY 04/01/23 10/09/23 lorazepam 1 mg tablet (Ativan) 1 mg PO BEDTIME PRN Anxiety 04/01/23 10/09/23 losartan 50 mg tablet 50 mg PO DAILY 04/01/23 10/09/23 sertraline 100 mg tablet (Zoloft) 100 mg PO DAILY 04/01/23 10/09/23 Previous Rx's ?Medication ?Instructions ?Recorded amoxicillin 875 mg-potassium 1 tab PO Q12H 7 days #14 tabs 06/24/23 clavulanate 125 mg tablet naproxen 500 mg tablet 500 mg PO Q8H PRN pain (scale 06/24/23 score 4-6) #14 tabs tramadol 50 mg tablet 50 mg PO Q8H PRN pain (scale score 06/24/23 7-10) #6 tabs colchicine 0.6 mg tablet 0.6 mg PO BID #10 tabs 10/16/23 prednisone 20 mg tablet 20 mg PO DAILY #4 tabs 10/17/23 Allergies Allergy/AdvReac Type Severity Reaction Status Date / Time No Known Allergies Allergy Verified 10/16/23 18:52 Review of Systems 2 Review of Systems: Constitutional : No Weight loss, No Fever, No Chills, No Night Sweats, No Fatigue, No Malaise ENT/Mouth : No Hearing loss, No Ear Pain, No Nasal Congestion, No Sinus Pain, No Hoarseness, No sore throat, No Rhinorrhea, No Swallowing Difficulty Eyes: No Eye Pain, No Swelling, No Redness, No Foreign Body, No Discharge, No Vision Changes Cardiovascular : No Chest Pain, No SOB, No Dyspnea on Exertion, No Orthopnea, No Edema, No Palpitations Respiratory : No Cough, No Sputum, No Wheezing, No Smoke Exposure, No Dyspnea Gastrointestinal : No Nausea, No Vomiting, No Diarrhea, No Constipation, No abdominal Pain, No Hematochezia, No Melena Genitourinary : no irregular bleeding, No Dysuria, No Urinary Frequency, No Hematuria, No Urinary Incontinence, No Urgency, No Flank Pain, No Urinary Flow Changes, No Hesitancy Musculoskeletal : No joint pain, No Myalgias, No Joint Swelling Skin : redness and swelling of the great toe on the right foot, sparing the tip of the toe and the base Neuro : No Weakness, No Numbness, No Paresthesias, No Loss of Consciousness, No Dizziness, No Headache Psych : No Anxiety/Panic, No Depression, No SI/HI/AH/VH, No Social Issues, Heme/Lymph: No Bruising, No Bleeding,No Lymphadenopathy Endocrine : No Polyuria, No Polydipsia, No Temperature Intolerance PMFSH Past Medical History Medical History (Updated 10/16/23 @ 23:59 by Apolonia Baumann MD) Swelling of left foot Fibroma Fibroma of lower extremity HTN (hypertension) Fatty liver Anxiety OCD (obsessive compulsive disorder) Surgical History Hx of wisdom tooth extraction Hx of cholecystectomy (~2008) Social History Social History Patient Tobacco Use Status: Former Tobacco user Advance Directives: No Advance Directives Information Provided: No Do you have a plan to hurt others: No Plan Physical Exam 2 Vital Signs: Vital Signs: Last Vital Signs Temp 97.1 F 10/16/23 18:51 Pulse 79 10/16/23 18:51 Resp 18 10/16/23 18:51 BP 150/81 H 10/16/23 18:51 Pulse Ox 99 10/16/23 18:51 O2 Del Method Room Air 10/16/23 18:51 BMI result Body Mass Index 41.2 Medical Decision Making Medical Decision Making MDM Narrative: my interpretation of labs: White blood cell count 8.3, ESR and CRP are slightly elevated, patient's creatinine noted to be 1.51. Patient's uric acid elevated 10.1 - According to the patient, he has never been told that his creatinine is elevated. Patient denies any recent illnesses, no diarrhea or vomiting. Patient states that he is aware he does not drink enough fluids. - I discussed with the patient that we can not give him IV fluids, recheck creatinine. However, patient prefers to go home, increase his p.o. intake of fluids and have close follow-up with his primary care physician to recheck labs. - I discussed with the patient that he likely has gout , less likely pseudogout or cellulitis. 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 and prednisone. Differential Diagnosis Differential Diagnoses: The differential diagnosis associated with the presentation includes ( As above) Lab Data MDM Lab Attestation statement: I reviewed the patient's lab results. 10/16/23 19:06 10/16/23 19:07 Labs: Lab Results 10/16/23 10/16/23 Range/Units 19:06 19:07 WBC 8.3 (4.8-10.8) X10*3/uL RBC 4.62 (4.60-5.80) X10*6/uL Hgb 14.4 (14.0-18.0) g/dl Hct 41.8 L (42.0-52.0) % MCV 90.5 (80.0-98.0) fL MCH 31.2 (27.0-33.0) pg MCHC 34.4 (31.0-36.0) g/dl RDW 12.1 (11.0-16.0) % Plt Count 255 (160-400) X10*3/uL MPV 10.1 (9.4-12.4) fL Immature Gran % (Auto) 0.5 H (0.0-0.4) % Neut % (Auto) 53.9 (45-73) % Lymph % (Auto) 32.7 (20-40) % [place] % (Auto) 7.8 (2-11) % Eos % (Auto) 4.4 H (0-4) % Baso % (Auto) 0.7 (0-2) % Lymph # (Auto) 2.7 (1.2-4.9) X10*3/uL [place] # (Auto) 0.7 (0.1-1.2) X10*3/uL Eos # (Auto) 0.4 (0.0-0.4) X10*3/uL Baso # (Auto) 0.1 (0.0-0.2) X10*3/uL Abs Immat Gran (auto) 0.04 H (0.00-0.03) X10*3/uL Absolute Neuts (auto) 4.5 (2.0-8.3) x10*3/uL Absolute Nucleated RBC 0.000 (0.0-0.012) X10*3/uL Nucleated RBC % (auto) 0.0 (0.0-0.2) /100WBC ESR 38 H (0-15) MM/HR Sodium 140 (135-145) mmol/L Potassium 3.8 (3.3-5.1) mmol/L Chloride 104 (96-108) mmol/L Carbon Dioxide 28 (22-29) mmol/L Anion Gap 12 (12-20) BUN 9 (9-16) mg/dL Creatinine 1.53 H (0.5-1.4) mg/dL Estim Creat Clear Calc 66.7 Estimated GFR 49 Random Glucose 125 H (60-115) mg/dL Uric Acid 10.1 H (3.4-7.0) mg/dL Calcium 9.0 (8.4-10.2) mg/dL Total Bilirubin 0.3 (0.0-1.0) mg/dL AST 25 (5-37) U/L ALT 30 (0-40) U/L Alkaline Phosphatase 76 (39-117) U/L C-Reactive Protein 2.51 H (< or = 0.50) mg/dL Total Protein 8.0 (6.5-8.0) g/dL Albumin 4.0 (3.5-5.0) g/dL Lipase 32 (8-78) U/L Discharge Plan Discharge Clinical Impression: Gout Patient Disposition: Home, Self-Care Instructions: Low Purine Diet (ED), Gout (ED) Additional Instructions: Please follow-up with your primary care physician tomorrow. If you have any worsening or new symptoms, please return to the emergency room or call 911 Prescriptions: New colchicine 0.6 mg tablet 0.6 mg PO BID Qty: 10 0RF prednisone 20 mg tablet 20 mg PO DAILY Qty: 4 0RF No Action losartan 50 mg Tablet 50 mg PO DAILY sertraline [Zoloft] 100 mg Tablet 100 mg PO DAILY lorazepam [Ativan] 1 mg Tablet 1 mg PO BEDTIME PRN (Reason: Anxiety) aripiprazole [Abilify] 10 mg Tablet 10 mg PO DAILY tramadol 50 mg tablet 50 mg PO Q8H PRN (Reason: pain (scale score 7-10)) Qty: 6 0RF amoxicillin-pot clavulanate 875-125 mg tablet 1 tab PO Q12H 7 Days Qty: 14 0RF naproxen 500 mg tablet 500 mg PO Q8H PRN (Reason: pain (scale score 4-6)) Qty: 14 0RF Stand Alone Forms: Work/School Release Print Language: Latvian
[2023-10-17] MEDS: predniSONE 20 MG TABLET PO (00:23)
[2023-10-17] MEDS: Colchicine 0.6 MG TABLET 1.2 MG PO (00:23)
[2023-10-17 00:35] VITALS: BP 136/74; PULSE 90; RESP 16; TEMP 36.3
== END 2023-10-17 00:37 | disposition home or self-care (01) ==
PROVIDERS: Physician Assistant; Emergency Provider Emergency Medicine; PCP Internal Medicine
DX: M10.9 Gout, unspecified (principal); M79.89 Other specified soft tissue disorders; I10 Essential (primary) hypertension; Z79.899 Other long term (current) drug therapy
CPT/HCPCS: 36415; 73660; 80053; 83690; 84550; 85025; 85652; 86140; 99282; 99283

== ENCOUNTER 2023-10-23 13:55 | Outpatient (AMB) | payer MEDICAID, SELFPAY ==
--- NOTE | 2023-10-23 13:56 | A.OFFVIS_ITS ---
Intake Visit Reasons: excision of Lipoma of right leg Intake Note: Office procedure: excision of Lipoma of right leg Community Coordinator Required: No Accompanied by: Self / Same As Patient Allergies No Known Allergies Allergy (Verified 10/23/23 13:57) HPI HPI excision of Lipoma of right leg: Details: He is here for excision of mass from the right leg [facility] Medical History Swelling of left foot Fibroma Fibroma of lower extremity HTN (hypertension) Fatty liver Anxiety OCD (obsessive compulsive disorder) Surgical History Hx of wisdom tooth extraction Hx of cholecystectomy (~2008) Social History Patient Tobacco Use Status: Former Tobacco user Office Procedures Excision Details: He was placed in supine position. The mass was on the right posterior thigh. This was a soft subcutaneous mass measuring about 2 cm. This area was prepped and draped. Lidocaine 1% was used for local anesthesia. I made an elliptical incision on the skin surrounding this mass using blade 15. The incision was carried down through the full-thickness of the skin subcutaneous fat to excise this entire mass. The incision was closed with full-thickness nylon 3-0 interrupted sutures. Dressings were applied. The procedure was completed. He tolerated procedure well. There were no immediate complications. 30711-tymlh/arms/legs 1.1-2cm Procedure code (CPT) selection complete Assessment & Plan Assessment & Plan (1) Fibroma of lower extremity: Code(s): D21.20 - Benign neoplasm of connective and other soft tissue of unspecified lower limb, including hip Category: Medical Plan: This mass appears to be a fibroma. Excision was done. He was given wound care instructions. We will see him in for a follow-up for removal sutures in the office. Coding Level of Care Code Procedure Only Diagnoses Fibroma of lower extremity D21.20 CPT Codes Trunk/Arms/Legs - CPT: 00331-fzodd/arms/legs 1.1-2cm ([id number])
== END 2023-10-23 14:20 | disposition home or self-care (01) ==
PROVIDERS: PCP Internal Medicine; Visit Provider Surgery
DX: D17.23 Benign lipomatous neoplasm of skin and subcutaneous tissue of right leg (principal)
CPT/HCPCS: 11403

== ENCOUNTER 2023-10-23 13:55 | Outpatient (REF) | payer MEDICAID, SELFPAY | END 2023-10-23 13:56 | disposition home or self-care (01) | LOC: HO.LNP 13:55 | PROVIDERS: PCP Internal Medicine; Visit Provider Surgery | DX: D21.20 Benign neoplasm of connective and other soft tissue of unspecified lower limb, including hip (principal) | CPT/HCPCS: 11403; 88304 ==

== ENCOUNTER → 2023-11-06 09:32 | Outpatient (BNVA) | payer MEDICAID, SELFPAY | PROVIDERS: PCP Internal Medicine; Visit Provider Surgery ==

== ENCOUNTER 2024-04-07 15:31 | Outpatient (REF) | payer MEDICAID, SELFPAY ==
--- OUTSIDE RECORDS SUMMARY | 2024-04-07 16:08 | XMS_ITS ---
Author Organization [facility] Address [address] [place] [address] Care Team Providers Care Meal Grinder Tender Name Role Phone Maribell Lloyd Primary Care Provider Unavailab Yahir Herrera Unavailable [phone] REASON FOR VISIT screening Encounters Encounter Location Date Provider Diagnosis [facility] Outpatient [address] [place] [phone] 04/03/2023 Yahir Christian Encounter for scre ening colonoscopy Z12.11 and Other hemorrhoids K64.8 ASSESSMENTS Encounter Date Diagnosis Assessment Notes Treatment Notes Treatment Clinical Notes 04/03/2023 Encounter for screening colonoscopy (ICD-10 - Z12.11) 04/03/2023 Other hemorrhoids (ICD-10 - K64.8) PLAN OF TREATMENT No Information
--- OUTSIDE RECORDS SUMMARY | 2024-04-07 16:08 | XMS_ITS | Clinical Summary ---
Author Organization [facility] Address [address] [place] [address] Care Team Providers Care Dental Technician Instructor Name Role Phone Pcp, No Primary Care Provider Unavailabl e Encounters Date Type Department Care Team Description 01/27/2024 Travel from Last 3 Months Immunizations Name Administration Dates Next Due Tdap 01/27/2024 Social History Tobacco Use Types Packs/Day Years Used Date Smoking Tobacco: Never Assessed Sex and Gender Information Value Date Recorded Sex Assigned at Male 01/27/2024 11:51 AM EST Gender Identity Male 01/27/2024 11:51 AM EST Sexual Orientation Choose not to disclose 2023 11:51 AM EST Plan of Treatment Health Maintenance Due Date Last Done Comments Hepatitis C Virus Screening 1975 HIV Screening 11/12/1988 Hepatitis B Vaccines (1 of 3 - 19+ 3-dose series) 11/12/1994 Colonoscopy 11/12/2020 Influenza Vaccine 09/26/2023 COVID-19 Vaccine (1 - 2023-2 5 season) 2023 DTaP/Tdap/Td Vaccines (2 - T d or Tdap) 01/26/2034 01/27/2024 Pneumococcal Vaccine: Pediat shasha (0-5 Years) and At-Risk Patients (6 to 49 Years) Aged Out No longer eligible b ased on patient's age to complete this topic Care Teams Dental Technician Instructor Relationship Specialty Start Date End Date Pcp, No PCP - General General Medicine 01/16/24
--- OUTSIDE RECORDS SUMMARY | 2024-04-07 16:08 | XMS_ITS ---
Author Organization [facility] Address [address] [place] [address] Care Team Providers Care Ship Self Defense System Mk1 Operator Name Role Phone Maribell Lloyd Primary Care Provider Unavailab Yahir Herrera [phone] REASON FOR VISIT Change lab order Encounters Encounter Location Date Provider Diagnosis [facility] [address] [place] [address] 03/07/2023 Yahir Christian PLAN OF TREATMENT No Information
--- OUTSIDE RECORDS SUMMARY | 2024-04-07 16:09 | XMS_ITS ---
Author Organization [facility] Address [address] [place] [address] Care Team Providers Care Reinforcement Maker Name Role Phone Maribell Lloyd Primary Care Provider UnavailYahir Lopez [phone] REASON FOR VISIT bowel prep MEDICATIONS Medication SIG (Take, Route, Frequency, Duration) Notes Start Date End Date Status Dulcolax (colon prep) 5 MG take at 3:00 p.m and 7:00p.m. Orally two tablets twice a day for one day for 1 day 03/10/2023 Active MiraLax (colon prep) 17 GM/SCOOP 1 238Gm bottle mixed with Gatorade or Crystal Light Orally begin at 5:00 p.m. the day before the procedure for 1 day 03/10/2023 Active Encounters Encounter Location Date Provider Diagnosis [facility] [address] [address] 03/06/2023 Yahir Christian PLAN OF TREATMENT Medication Medication Name Sig Start Date Stop Date Notes Dulcolax (colon prep) 5 MG take at 3:00 p.m and 7:00p.m. Orally two tablets twice a day for one day for 1 day 03/10/2023 MiraLax (colon prep) 17 GM/SCOOP 1 238Gm bottle mixed with Gatorade or Crystal Light Orally begin at 5:00 p.m. the day before the procedure for 1 day 03/10/2023
--- OUTSIDE RECORDS SUMMARY | 2024-04-07 16:09 | XMS_ITS | Patient Health Record ---
Author Organization [facility] Address [address] [place] [address] Care Team Providers Care Mill Oiler Name Role Phone Maribell Lloyd Primary Care Provider Yahir Floyd Unavailable [phone] ALLERGIES No Known Allergies REASON FOR REFERRAL No Information MEDICATIONS Medication [...] Problem Liver enzyme elevation (R74.8) Active confirmed [id number] Problem Fatty liver (K76.0) Active confirmed 076949656 Problem Colon cancer screening (Z12.11) Active confirmed [id number] PLAN OF TREATMENT Pending Test Test Name [...] Start Date Coverage End Date MEDICAID OF [employer] [address] [place] [phone] [id number] PAT VELASCO Self - patient is the insured MEDICAL (GENERAL) HISTORY Medical History History ICD Code OCD/Anxiety--helped by his meds HTN Fatty liver Denies [place],DM,CVA,Lung disease,renal dise ase Surgical History Surgery Date(Month/Year) CCY 15 years ago
[2024-04-08 03:57] LABS: HIV AB/AG Nonreactive (Nonreactive); HIV Num 1 0.06 S/CO (0.00-0.99)
[2024-04-10 15:14] LABS: TS Negative Control Passed; TS Panel A 1; TS Panel B 0; TS Positive Control Passed; TSpotTB Negative (Negative)
== END 2024-04-07 15:32 | disposition home or self-care (01) ==
LOC: HO.LAB 15:31
PROVIDERS: PCP Internal Medicine; Visit Provider Internal Medicine
DX: F42.9 Obsessive-compulsive disorder, unspecified (principal); Z77.21 Contact with and (suspected) exposure to potentially hazardous body fluids; Z11.1 Encounter for screening for respiratory tuberculosis
CPT/HCPCS: 36415; 86481; 87389

== ENCOUNTER 2025-02-06 05:53 | Emergency (ER) | payer OTHER, SELFPAY ==
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
[2025-02-06 06:00] VITALS: BP 135/69; PULSE 67; RESP 16; TEMP 36.6; O2SAT 96; BMI 40.3
--- OUTSIDE RECORDS SUMMARY | 2025-02-06 06:46 | XMS_ITS | Clinical Summary ---
Author Organization [facility] Address [address] [place] [address] Care Team Providers Care Chainsaw Mechanic Name Role Phone Pcp, No Primary Care Provider Unavailabl e Allergies No known active allergies Medications No known medications Active Problems Problem Noted Date Diagnosed Date Numbness 10/26/2024 Immunizations Immunization Administration Dates Next Due Tdap 01/27/2024 Social History Tobacco Use Types Packs/Day Years Used Date Smoking Tobacco: Never Assessed AUDIT-C Answer Date Recorded Q1: How often do you have a drink containing alcohol? Never 10/26/2024 Q2: How many drinks containi ng alcohol do you have on a typical day when you are drinking? Patient does not drink Q3: How often do you have si x or more drinks on one occasion? Never 10/26/2024 Sex and Gender Information Value Date Recorded Sex Assigned at Male 01/27/2024 11:51 AM EST Legal Sex Male 8:17 AM EST Gender Identity Male 01/27/2024 11:51 AM EST Sexual Orientation Choose not to disclose 2023 11:51 AM EST Last Filed Vital Signs Vital Sign Reading Time Taken Comments Blood Pressure 118/57 10/26/2024 11:23 PM EDT Pulse 67 10/26/2024 11:23 PM EDT Temperature 36.2 C (97.2 F) 10/26/2024 11:23 PM EDT Respiratory Rate 18 10/26/2024 11:23 PM EDT Oxygen Saturation 97% 10/26/2024 11:23 PM EDT Inhaled Oxygen Concentration - - Weight 109 kg (240 lb) 10/26/2024 3:59 PM EDT Height 162.6 cm (5' 4 ) 10/26/2024 3:59 PM EDT Body Mass Index 41.2 10/26/2024 3:59 PM EDT Plan of Treatment Health Maintenance Due Date Last Done Comments Hepatitis C Virus Screening 1975 HIV Screening 11/12/1988 Hepatitis B Vaccines (1 of 3 - 19+ 3-dose series) 11/12/1994 Colonoscopy 11/12/2020 Influenza Vaccine 09/25/2024 COVID-19 Vaccine (1 - 2024-2 6 season) 2024 DTaP/Tdap/Td Vaccines (2 - T d or Tdap) 01/26/2034 01/27/2024 Pneumococcal Vaccine: Pediat shasha (0-5 Years) and At-Risk Patients (6 to 49 Years) Aged Out No longer eligible b ased on patient's age to complete this topic Insurance [facility] Advance Directives * Full Code (Latest Code Status on File) Date Activated Date Inactivated Comments 10/26/2024 2:38 PM Care Teams Chainsaw Mechanic Relationship Specialty Start Date End Date Pcp, No PCP - General General Medicine 01/16/24
--- OUTSIDE RECORDS SUMMARY | 2025-02-06 06:46 | XMS_ITS | Patient Health Record ---
Author Organization [facility] Address [address] [place] [address] Care Team Providers Care White Sourer Name Role Phone Maribell Lloyd Primary Care Provider Yahir Floyd Unavailable [phone] Allergies No Known Allergies Reason For Referral No Information Medications Medication SIG (Take, Route, Frequency, Duration) Notes Start Date End Date Status Dulcolax (colon prep) 5 MG Tablet Delayed Release take at 3:00 p.m and 7:00p.m. Orally two tablets twice a day for one day; Duration: 1 day 03/10/2023 Active Ativan 1 MG Tablet 1 tablet at bedtime as needed Orally Once a day Active MiraLax (colon prep) 17 GM/SCOOP Powder 1 238Gm bottle mixed with Gatorade or Crystal Light Orally begin at 5:00 p.m. the day before the procedure; Duration: 1 day 03/10/2023 Active Losartan Potassium 50 MG Tablet 1 tablet Orally Once a day; Duration: 30 day(s) 03/06/2023 Active Abilify 10 MG Tablet 1 tablet Orally Onc e a day; Duration: 30 day(s) 03/06/2023 Active Zoloft 100 MG Tablet 1 tablet Orally Onc e a day; Duration: 30 day(s) twice a day 03/06/2023 Active Immunizations Vaccine Route Administration Date Status Comme nts Influenza Unknown 03/06/2023 Refused Social History Tobacco Use: Social History Observation Description Date Details (start date - stop date) Former Smoker NA - NA Social History Drugs/Alcohol: Social Info Question Answer Notes Alcohol Screen Did you have a drink containing alcohol in the past year? 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 [employer] in [employer]---he is trying to take the RN boards Section Notes: Nonsmoker; no alcohol He reports that he is [place] Problems Problem Type SNOMED Code ICD Code Onset Dates Problem Status W/U Status Risk Notes Problem Colon cancer screening (218772774) Colon cancer screening (Z12.11) Active confirmed Problem Fatty liver (598250413) Fatty liver (K76.0) Active confirmed Problem Laboratory test result abnormal (775849544) Liver enzyme elevation (R74.8) Active confirmed Plan Of Treatment Pending Test Test Name Order Date LIVER [...] Start Date Coverage End Date MEDICAID OF [facility] [address] [place] [address] [id number] PAT VELASCO Self - patient is the insured Medical (General) History Medical History History ICD Code OCD/Anxiety--helped by his meds HTN Fatty liver Denies [place],DM,CVA,Lung disease,renal dise ase Surgical History Surgery Date(Month/Year) CCY 15 years ago
--- OUTSIDE RECORDS SUMMARY | 2025-02-06 06:46 | XMS_ITS ---
Author Name [facility] Organization Unknown Results Test Name/Text Value Interpretation Date Range Source BUN SerPl-mCnc 14.0 mg/dL 10/26/2024 8 - [address] Creat SerPl-mCnc 1.1 mg/dL 10/26/2024 0.5 - 1.3 HH CCT Chloride SerPl-sCnc 101.0 mmol/L 10/26/2024 98 - 1 07 HHCCT BUN/Creat SerPl 13.0 Ratio 10/26/2024 10 - 25 HH CCT GFR/BSA.pred SerPlBld [id number] 83.0 10/26/2024 59 - HHCCT Anion Gap Bld-sCnc 9.0 10/26/2024 7 - 17 HHCCT CO2 SerPl-sCnc 27.0 mmol/L 10/26/2024 22 - 33 HH CCT Sodium SerPl-sCnc 137.0 mmol/L 10/26/2024 136 - 14 5 HHCCT Glucose SerPl-mCnc 88.0 mg/dL 10/26/2024 65 - 99 HHCCT Calcium SerPl-mCnc 8.4 mg/dL Below low normal 10/26/2024 8.7 - 10.5 HHCCT Potassium SerPl-sCnc 3.5 mmol/L 10/26/2024 3.4 - 5 .3 HHCCT Magnesium SerPl-mCnc 2.1 mg/dL 10/26/2024 1.6 - 2. 7 H[facility]CT Eosinophil/leuk NFr Bld Auto 4.0 % 10/26/2024 HHCCT MCH RBC Qn Auto 31.2 pg 10/26/2024 26 - [address] Neutrophils/leuk NFr Bld Auto 47.8 % 10/26/2024 HHCCT Imm Granulocytes num Bld Auto 0.24 Thou/uL Above high normal 10/26/2024 0 - 0.1 HHCCT Neutrophils num Bld Auto 5.34 Thou/uL 10/26/2024 2 - 7.5 HHCCT Lymphocytes/leuk NFr Bld Auto 35.6 % 10/26/2024 H[facility]CT Platelet num Bld Auto 287.0 Thou/uL 10/26/2024 150 - 450 HHCCT Lymphocytes num Bld Auto 3.98 Thou/uL 10/26/2024 1.5 - 4.5 HHCCT MCV RBC Auto 90.0 fL 10/26/2024 80 - 100 HHCCT PMV Bld Auto 10.3 fL 10/26/2024 7.5 - 12.5 HHCCT Hgb Bld-mCnc 14.8 g/dL 10/26/2024 13 - 17.7 HHCCT MCHC RBC Auto-mCnc 34.7 g/dL 10/26/2024 30 - 36 HHCCT RBC num Bld Auto 4.75 Mil/uL 10/26/2024 4.5 - 6.2 HHCCT WBC num Bld Auto 11.2 Thou/uL Above high normal 10/26/2024 4 - 11 HHCCT Hct VFr Bld Auto 42.7 % 10/26/2024 39 - 54 HH CCT Monocytes/leuk NFr Bld Auto 9.4 % 10/26/2024 HHCCT Basophils/leuk NFr Bld Auto 1.1 % 10/26/2024 HHCCT Eosinophil num Bld Auto 0.45 Thou/uL 10/26/2024 0 - 0.7 HHCCT Basophils num Bld Auto 0.12 Thou/uL 10/26/2024 0 - 0.2 HHCCT Imm Granulocytes/leuk NFr Bld Auto 2.1 % 10/26/2024 HHCCT RDW RBC Auto-Rto 12.2 % 10/26/2024 11.5 - 14.5 HHCCT Monocytes num Bld Auto 1.05 Thou/uL 10/26/2024 0.2 - 1.5 HHCCT POC Glucose 101.0 mg/dL Above high normal 10/26/2024 65 - 99 HHCCT Encounters Encounter Type Encounter Reason Primary Diagnosis Location Date Observation Anesthesia of skin Anesthesia of skin [facility] 10/26/2024 [facility] 01/28/2024 Ambulatory [facility] 01/27/2024 Care Team Organization Name Specialty Phone Email Start Date End Da te [place] [employer] [facility] PCP Progress Developer 01/30/2024 11/24/2024 [place] [employer] [facility] NO PCP Primary Care 01/16/2024
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
[2025-02-06 07:57] VITALS: BP 113/56; PULSE 68; RESP 16; TEMP 36.6; O2SAT 97
[2025-02-06 08:23] LABS: Appearance Urine Clear; Glucose Urine UA Negative (Negative); PH 6.5 (5.0-9.0); Specific Gravity - Urine 1.015 (1.005-1.025)
[2025-02-06 10:22] VITALS: BP 121/78; PULSE 64; RESP 15; TEMP 37.1; O2SAT 98
== END 2025-02-06 10:23 | disposition home or self-care (01) ==
PROVIDERS: Emergency Provider Emergency Medicine; PCP Internal Medicine
DX: S39.012A Strain of muscle, fascia and tendon of lower back, initial encounter (principal); V49.49XA Driver injured in collision with other motor vehicles in traffic accident, initial encounter; Y93.9 Activity, unspecified; Y92.414 Local residential or business street as the place of occurrence of the external cause
CPT/HCPCS: 72100; 81003; 99283; 99284

== ENCOUNTER → 2025-02-06 07:15 | Outpatient (BNV) | payer MEDICAID, SELFPAY | PROVIDERS: Emergency Provider Emergency Medicine; PCP Internal Medicine; Visit Provider Radiology Diagnostic Radiology | DX: M54.50 Low back pain, unspecified (principal); Z04.3 Encounter for examination and observation following other accident | CPT/HCPCS: 72100 ==